=== PATIENT | female | born 1955 ===

== ENCOUNTER 2022-06-05 06:00 | Day surgery (SDC) | payer OTHER ==
[~2022-06-05] VITALS: Ht 152.4 cm; Wt 68.0 kg
[~2022-06-05 06:00] MED LIST: AMITRIPTYLINE H10 MG PO; CALAN SR 120MG120 MG PO; FOSAMAX70 MG PO; GABAPENTIN400 MG PO; MEDROL4 MG PO; PLAQUENIL PO; TREXALL5 MG PO
[2022-06-05] MEDS ORDERED: PERCOCET 5-3251 EACH PO (12:12)
== END 2022-06-05 15:00 | disposition home or self-care (01) ==
LOC: CIR.AMB 06:00
PROVIDERS: ATTEND Surgery
DX: D35.1 Benign neoplasm of parathyroid gland (principal); Z20.822 Contact with and (suspected) exposure to COVID-19; I10 Essential (primary) hypertension; E21.0 Primary hyperparathyroidism; M06.80 Other specified rheumatoid arthritis, unspecified site